=== PATIENT | female | born 1975 | race Caucasian/White ===

== ENCOUNTER 2016-06-09 16:09 | Emergency (ER) | payer OTHER ==
[2016-06-09] MEDS ORDERED: NS 0.9% 1000 ML* 2,000 ML IV ONE (17:35)
[2016-06-09 18:05] LABS: Hematocrit 40 % (35-47); Hemoglobin 12.9 g/dl (12.0-16.0); Mean Corpuscular HGB Conc 32 g/dl (31-36); Mean Corpuscular Hemoglobin 28 pg (27-31); Mean Corpuscular Volume 85 fL (80-97); Mean Platelet Volume 12 um3 (7.4-10.4); Red Blood Count 4.71 10^6/ul (4.0-5.4); Red Cell Distribution Width 13 % (10.5-15); White Blood Count 6.8 10^3/ul (3.5-10.8)
[2016-06-09 18:22] LABS: ALT 81 U/L (7-52); AST 39 U/L (13-39); Albumin 3.9 g/dL (3.2-5.2); Alkaline Phosphatase 79 U/L (34-104); Anion Gap 7 mmol/L (2-11); BUN/Creatinine Ratio 12.9 (8-20); Blood Urea Nitrogen 11 mg/dL (6-24); CO2 Carbon Dioxide 25 mmol/L (22-32); Calcium 9.1 mg/dL (8.6-10.3); Chloride 107 mmol/L (101-111); Creatine Kinase 44 U/L (10-223); EGFR African American 96.3 (>60); EGFR Non-African American 74.9 (>60); Globulin 3.1 g/dL (2-4); Glucose 95 mg/dL (70-100); Lipase < 10 U/L (11.0-82.0); Magnesium 2.2 mg/dL (1.9-2.7); Potassium 3.1 mmol/L (3.5-5.0); Sodium 139 mmol/L (133-145)
[2016-06-09 18:38] LABS: Urine Bacteria 1+ (Absent); Urine Bilirubin 1+ (Negative); Urine Glucose Negative (Negative); Urine Nitrite Negative (Negative)
--- NOTE | 2016-06-09 18:48 | RAD ---
Indication: Chest pain. Single frontal view of the chest performed at 1803 hours was reviewed. Comparison is made with previous exam dated March 18, 2016. No mediastinal shift is noted. Heart is of normal size and configuration. Lung rao appear clear. IMPRESSION: NO ACTIVE CARDIOPULMONARY DISEASE IS NOTED.
[2016-06-09 18:52] LABS: TSH (Thyroid Stimulating Horm) 0.86 mcIU/mL (0.34-5.60)
[2016-06-09] MEDS ORDERED: Ondansetron INJ* 2 MG/ML VIAL IV ONE (19:37)
[2016-06-09] MEDS ORDERED: Morphine INJ* 4 MG/ML 1 ML CARPUJECT IV ONE (19:37)
[2016-06-09] MEDS ORDERED: Potassium Chlor TAB* 20 MEQ TAB.ER PO ONE (19:43)
[2016-06-09] MEDS ORDERED: Iohexol 350* (CONTRAST) 500 ML MDV IV ONE (19:52)
--- NOTE | 2016-06-09 21:48 | RAD ---
Indication: Cholecystitis. Real-time sonography of the right upper quadrant was performed. The liver measures 17 cm in length. No focal lesions or intrahepatic ductal dilatation is noted. The gallbladder demonstrates multiple echogenic foci with posterior acoustic shadowing consistent with cholelithiasis. No pericholecystic fluid or wall thickening is identified. The common duct measures 4 mm. Right kidney measures 11.8 x 3.7 x 4.6 cm with no hydronephrosis. The proximal aorta and inferior vena cava are unremarkable. IMPRESSION: Cholelithiasis without evidence of biliary duct dilatation.
[2016-06-09] MEDS ORDERED: oxyCODONE/Acetamin 5/325 MG* TAB PO ONE (21:58)
--- NOTE | 2016-06-09 22:16 | RAD ---
Indication: Evaluate for pulmonary embolus, right lower quadrant pain. Contrast: Administered 99.9 ml of OMNIPAQUE 350 mgi/ml. CT of the chest was performed after IV contrast administration. Coronal and sagittal reconstructed images were obtained. The pulmonary arterial tree is well opacified. No filling defects are noted to suggest pulmonary embolus. There is no mediastinal or hilar adenopathy. The heart demonstrates no pericardial effusion. The aorta demonstrates no evidence of aortic dissection or aneurysmal dilatation. The trachea and major bronchi appear patent. Dependent changes with poor inspiration and emphysematous changes of the lung rao are noted. The axilla demonstrates no evidence of abnormal masses CT of the abdomen and pelvis demonstrates liver to be normal in size. No focal lesions or intrahepatic ductal dilatation is noted. Area of typical fatty fatty infiltration is noted in the anterior medial and lateral segment of the left lobe just adjacent to the falciform ligament. No intrahepatic ductal dilatation is noted. The gallbladder demonstrates no calcified gallstones, pericholecystic fluid or wall thickening. The spleen is normal in size. No adrenal lesions are noted. The kidneys demonstrate symmetric nephrograms without focal lesions. The pancreas demonstrates no mass or pancreatic duct dilatation. Common duct is not dilated. No retroperitoneal adenopathy is noted. Aorta and inferior vena cava are otherwise unremarkable. No pelvic adenopathy is noted. No dilated loops of bowel are noted. The colon is filled with stool. The appendix is not visualized. The uterus demonstrates IUD in place. No adnexal masses are noted. No hernias are noted. No free fluid is identified. IMPRESSION: No evidence of pulmonary emboli is noted. Dependent changes of the lung rao with emphysematous changes are noted. The appendix is not visualized. Evaluation is limited due to lack of oral contrast. Typical fatty infiltration in the liver.
[2016-06-09 23:04] VITALS: BP 120/64
--- NOTE | 2016-06-09 23:06 | ED ---
David Ng Claudia, scribed for Pollo Cason on 06/09/16 at 1928 . Complex/Multi-Sys Presentation - HPI Summary HPI Summary: 40 year old female presents to the ED with right sided CP. Pt notes associated Sx of nausea, hematuria, right sided back pain and some RLQ and RUQ abd pain. Pt notes sudden onset of pain today. Pt denies left sided CP, SOB, cough. No alleviating or aggravating factors noted. Pt notes she still has her gallbladder and appendix. - History Of Current Complaint Chief Complaint: EDChestPainROMI Time Seen by Provider: 06/09/16 19:14 Hx Obtained From: Patient Onset/Duration: Sudden Onset, Lasting Hours, Still Present Timing: Constant Character: Sharp Associated Signs And Symptoms: Positive: Chest Pain - right sided, Nausea, Back Pain. Negative: SOB, Cough, Dysuria - Allergies/Home Medications Allergies/Adverse Reactions: Allergies Allergy/AdvReac Type Severity Reaction Status Date / Time Acetaminophen Allergy See Comment Verified 03/18/16 06:22 Sertraline [From Zoloft] Allergy Anxiety Verified 03/18/16 06:22 PMH/Surg Hx/FS Hx/Imm Hx Previously Healthy: Yes Endocrine/Hematology History: Denies: Hx Diabetes Respiratory History: Reports: Other Respiratory Problems/Disorders - bronchitis GI History: Reports: Hx Gastroesophageal Reflux Disease Neurological History: Reports: Other Neuro Impairments/Disorders - Fibromyalgia Psychiatric History: Reports: Hx Post Traumatic Stress Disorder Infectious Disease History: No Infectious Disease History: Denies: Traveled Outside the [place] in Last 30 Days - Family History Known Family History: Positive: Other - basal cell carcinoma, Parkinsons - Social History Occupation: Employed Full-time Lives: With Family Alcohol Use: Rare Hx Substance Use: No Substance Use Type: Reports: None Substance Use Comment - Amount & Last Used: unknown Hx Tobacco Use: No Smoking Status (MU): Never Smoked Tobacco Review of Systems Constitutional: Negative Eyes: Negative ENT: Negative Positive: Chest Pain - right sided Negative: Shortness Of Breath, Cough Positive: Abdominal Pain, Nausea Positive: hematuria Positive: Other - back pain Skin: Negative Neurological: Negative Psychological: Normal All Other Systems Reviewed And Are Negative: Yes Physical Exam Triage Information Reviewed: Yes Vital Signs On Initial Exam: Initial Vitals Pulse BP Pulse Ox 86 134/77 97 06/09/16 16:32 06/09/16 16:32 06/09/16 16:32 Vital Signs Reviewed: Yes Appearance: Positive: Well-Appearing, No Pain Distress Skin: Positive: Warm, Skin Color Reflects Adequate Perfusion, Dry Head/Face: Positive: Normal Head/Face Inspection Eyes: Positive: EOMI, REUBEN ENT: Positive: Normal ENT inspection Neck: Positive: Supple, Nontender Respiratory/Lung Sounds: Positive: Clear to Auscultation, Breath Sounds Present Cardiovascular: Positive: RRR, Pulses are Symmetrical in both Upper and Lower Extremities Abdomen Description: Positive: Soft. Negative: Nontender - tender at RUQ, RLQ Musculoskeletal: Positive: Normal, Strength/ROM Intact Neurological: Positive: Normal, Sensory/Motor Intact, Alert, Oriented to Person Place, Time - Kristopher Coma Scale Coma Scale Total: 15 Diagnostics - Vital Signs Vital Signs Temp Pulse Resp BP Pulse Ox 06/09/16 19:00 79 12 100 06/09/16 18:30 80 9 131/73 99 06/09/16 18:20 94 16 126/76 98 06/09/16 18:00 82 10 100 06/09/16 17:30 82 11 118/68 98 06/09/16 17:00 96 25 98 06/09/16 16:55 98.5 F 88 20 134/77 98 06/09/16 16:32 86 134/77 97 - Laboratory Lab Results: Lab Results 06/09/16 06/09/16 06/09/16 Range/Units 17:55 17:55 17:55 WBC 6.8 (3.5-10.8) 10^3/ul RBC 4.71 (4.0-5.4) 10^6/ul Hgb 12.9 (12.0-16.0) g/dl Hct 40 (35-47) % MCV 85 (80-97) fL MCH 28 (27-31) pg MCHC 32 (31-36) g/dl RDW 13 (10.5-15) % Plt Count 174 (150-450) 10^3/ul MPV 12 H (7.4-10.4) um3 Neut % (Auto) 54.4 (38-83) % Lymph % (Auto) 36.1 (25-47) % [place] % (Auto) 6.4 (1-9) % Eos % (Auto) 2.4 (0-6) % Baso % (Auto) 0.7 (0-2) % Absolute Neuts (auto) 3.7 (1.5-7.7) 10^3/ul Absolute Lymphs (auto) 2.5 (1.0-4.8) 10^3/ul Absolute Monos (auto) 0.4 (0-0.8) 10^3/ul Absolute Eos (auto) 0.2 (0-0.6) 10^3/ul Absolute Basos (auto) 0 (0-0.2) 10^3/ul Absolute Nucleated RBC 0 10^3/ul Nucleated RBC % 0 INR (Anticoag Therapy) 0.90 (0.89-1.11) APTT 26.6 (26.0-36.3) seconds D-Dimer, Quantitative 268 H (Less Than 230) ng/mL Sodium 139 (133-145) mmol/L Potassium 3.1 L (3.5-5.0) mmol/L Chloride 107 (101-111) mmol/L Carbon Dioxide 25 (22-32) mmol/L Anion Gap 7 (2-11) mmol/L BUN 11 (6-24) mg/dL Creatinine 0.85 (0.51-0.95) mg/dL Est GFR ( Amer) 96.3 (>60) Est GFR (Non-Af Amer) 74.9 (>60) BUN/Creatinine Ratio 12.9 (8-20) Glucose 95 (70-100) mg/dL Lactic Acid (0.5-2.0) mmol/L Calcium 9.1 (8.6-10.3) mg/dL Magnesium 2.2 (1.9-2.7) mg/dL Total Bilirubin 0.60 (0.2-1.0) mg/dL AST 39 (13-39) U/L ALT 81 H (7-52) U/L Alkaline Phosphatase 79 (34-104) U/L Total Creatine Kinase 44 (10-223) U/L CK-MB (CK-2) 0.9 (0.6-6.3) ng/mL Troponin I 0.00 (<0.04) ng/mL C-Reactive Protein 24.00 H (< 5.00) mg/L B-Natriuretic Peptide ( - 100) pg/mL Total Protein 7.0 (6.4-8.9) g/dL Albumin 3.9 (3.2-5.2) g/dL Globulin 3.1 (2-4) g/dL Albumin/Globulin Ratio 1.3 (1-3) Lipase < 10 L (11.0-82.0) U/L TSH 0.86 (0.34-5.60) mcIU/mL Beta HCG, Quant < 0.60 mIU/mL Urine Color Urine Appearance Urine pH (5-9) Ur Specific [place] (1.010-1.030) Urine Protein (Negative) Urine Ketones (Negative) Urine Blood (Negative) Urine Nitrate (Negative) Urine Bilirubin (Negative) Urine Urobilinogen (Negative) Ur Leukocyte Esterase (Negative) Urine WBC (Auto) (Absent) Urine RBC (Auto) (Absent) Ur Squamous Epith Cells (Absent) Urine Bacteria (Absent) Urine Glucose (Negative) 06/09/16 06/09/16 06/09/16 Range/Units 17:55 17:55 18:20 WBC (3.5-10.8) 10^3/ul RBC (4.0-5.4) 10^6/ul Hgb (12.0-16.0) g/dl Hct (35-47) % MCV (80-97) fL MCH (27-31) pg MCHC (31-36) g/dl RDW (10.5-15) % Plt Count (150-450) 10^3/ul MPV (7.4-10.4) um3 Neut % (Auto) (38-83) % Lymph % (Auto) (25-47) % [place] % (Auto) (1-9) % Eos % (Auto) (0-6) % Baso % (Auto) (0-2) % Absolute Neuts (auto) (1.5-7.7) 10^3/ul Absolute Lymphs (auto) (1.0-4.8) 10^3/ul Absolute Monos (auto) (0-0.8) 10^3/ul Absolute Eos (auto) (0-0.6) 10^3/ul Absolute Basos (auto) (0-0.2) 10^3/ul Absolute Nucleated RBC 10^3/ul Nucleated RBC % INR (Anticoag Therapy) (0.89-1.11) APTT (26.0-36.3) seconds D-Dimer, Quantitative (Less Than 230) ng/mL Sodium (133-145) mmol/L Potassium (3.5-5.0) mmol/L Chloride (101-111) mmol/L Carbon Dioxide (22-32) mmol/L Anion Gap (2-11) mmol/L BUN (6-24) mg/dL Creatinine (0.51-0.95) mg/dL Est GFR ( Amer) (>60) Est GFR (Non-Af Amer) (>60) BUN/Creatinine Ratio (8-20) Glucose (70-100) mg/dL Lactic Acid 1.0 (0.5-2.0) mmol/L Calcium (8.6-10.3) mg/dL Magnesium (1.9-2.7) mg/dL Total Bilirubin (0.2-1.0) mg/dL AST (13-39) U/L ALT (7-52) U/L Alkaline Phosphatase (34-104) U/L Total Creatine Kinase (10-223) U/L CK-MB (CK-2) (0.6-6.3) ng/mL Troponin I (<0.04) ng/mL C-Reactive Protein (< 5.00) mg/L B-Natriuretic Peptide 20 ( - 100) pg/mL Total Protein (6.4-8.9) g/dL Albumin (3.2-5.2) g/dL Globulin (2-4) g/dL Albumin/Globulin Ratio (1-3) Lipase (11.0-82.0) U/L TSH (0.34-5.60) mcIU/mL Beta HCG, Quant mIU/mL Urine Color Nadine Urine Appearance Cloudy Urine pH 6.0 (5-9) Ur Specific [place] 1.030 (1.010-1.030) Urine Protein 1+(30 mg/dl) H (Negative) Urine Ketones Trace H (Negative) Urine Blood 2+ H (Negative) Urine Nitrate Negative (Negative) Urine Bilirubin 1+ H (Negative) Urine Urobilinogen Positive H (Negative) Ur Leukocyte Esterase 2+ H (Negative) Urine WBC (Auto) 1+(6-10/hpf) H (Absent) Urine RBC (Auto) 2+(6-10/hpf) H (Absent) Ur Squamous Epith Cells Present H (Absent) Urine Bacteria 1+ H (Absent) Urine Glucose Negative (Negative) Result Diagrams: 06/09/16 17:55 06/09/16 17:55 Lab Statement: Any lab studies that have been ordered have been reviewed, and results considered in the medical decision making process. - Radiology CHEST XRAY Xray Interpretation: No Acute Changes - NO ACTIVE CARDIPULMOANRY DISEASE Radiology Interpretation Completed By: Radiologist - CT ABD/PELVIS CT CT Interpretation: No Acute Changes - NO EVIDENCE OF PULMONARY EMBOLI IS NOTED. DEPENDENT CHANGES OF THE LUNG MANCIA WITH EMPHYSEMATOUS CHANGES ARE NOTED. THE APPENDIZ IS NOT VISUALIZED. EVALUATION IS LIMITED DUE TO LACK OF ORAL CONTRAST. TYPICAL FALLY INFILTRATION OF THE LIVER. CT Interpretation Completed By: Radiologist - Ultrasound No standard instances Ultrasound Interpretation: Positive (See Comments) - ABD US: CHOLELITHIASIS WITHOUT EVIDENCE OF BILARY DUCT DIALATION Ultrasound Interpretation Completed By: Radiologist Complex Multi-Symp Course/Dx Assessment/Plan: AFTER, URINE ANALYSIS/BLOOD CHEMSITRY, CXR, CTA ABD PELVIS AND ABD US PT WILL BE D/C HOME WITH FOLLOW-UP WITH SURGERY. - Diagnoses Provider Diagnoses: Gallstones, UTI (urinary tract infection) Discharge - Discharge Plan Condition: Stable Disposition: HOME Patient Education Materials: Cholecystitis (ED), Urinary Tract Infection in Women (ED) Referrals: Georges Anderson MD [Primary Care Provider] - 3 Days The documentation as recorded by the David dorsey Claudia accurately reflects the service I personally performed and the decisions made by Yoav hernandez Emmanuel.
== END 2016-06-09 23:03 | disposition home or self-care (01) ==
LOC: ED 16:09
DX: K80.80 Other cholelithiasis without obstruction (principal); N39.0 Urinary tract infection, site not specified; R31.9 Hematuria, unspecified; R07.9 Chest pain, unspecified; R11.0 Nausea; M54.9 Dorsalgia, unspecified
CPT/HCPCS: 36415; 71010; 71275; 74177; 76705; 80053; 81003; 81015; 82550; 82553; 83605; 83690; 83735; 83880; 84443; 84484; 84702; 85025; 85379; 85610; 85730; 86140; 87086; 93005; 96374; 96375; 99283; A9270-GY; J2270; J2405; Q9967

== ENCOUNTER → 2016-06-30 11:53 | Day surgery (SDC) | payer OTHER ==
--- NOTE | 2016-06-23 21:34 | HP ---
CC: Dr. Robertson, [facility]; Dr. Anderson PREOPERATIVE HISTORY AND PHYSICAL: DATE OF PREOPERATIVE HISTORY AND PHYSICAL: 06/23/16 DATE OF ADMISSION/SURGERY: This patient is scheduled for same-day surgery by Dr. Robertson on Tuesday , 06/30/16. ATTENDING SURGEON: Dr. John Robertson (dictated by Dez Reynolds NP) CHIEF COMPLAINT: Right upper quadrant abdominal pain. HISTORY OF PRESENT ILLNESS: The patient is a 40-year-old female, recently evaluated by Dr. Robertson fo r gallbladder disease. She had the acute onset of right upper quadrant pain in May 2016 and re ported to the [facility] Emergency Room. She described the pain as severe and radiating into he r back and shoulder. She denied any previous similar symptoms. She has intermittent nausea at basel ine; she did not vomit with the episode of right upper quadrant abdominal pain. She denies any mike ge in the color of urine or stool and denies any fever or chills. She underwent CAT scan of the abdo men as well as ultrasound of the gallbladder and the reports are consistent with gallstones without any secondary signs of cholecystitis. The patient continues to have mild discomfort in the right up per quadrant. Dr. Robertson examined the patient and reviewed the findings with her and has recommended laparoscopic cholecystectomy as a same day surgery procedure and described the nature of the surgic al procedure, the relevant risks and benefits, and today I have reviewed the typical same day hospit alization as well as the expected postoperative care and recovery. The patient has had a chance to ask questions and stated that she understands the information and is satisfied with the answers give n to her questions. She will sign surgical consent on the day of surgery. PAST MEDICAL HISTORY: Significant for fibromyalgia, gastroesophageal reflux disease, uterine fibroi ds, anxiety. PAST SURGICAL HISTORY: Adenoidectomy; excision of lesion under the right eye. OB HISTORY: 6, miscarriage 6. She is up-to-date with breast exam, pelvic and Pap smear. S he is followed by Dr. Eduardo and has a history of uterine fibroids associated with heavy menstrual fl ow and was started on oral contraceptives. Last menstrual period started 05/29/16. MEDICATIONS: 1. Lyrica 150 mg p.o. b.i.d. 2. Klonopin 2 mg p.o. daily every morning. 3. Protonix 40 mg 2 tablets daily. 4. Wellbutrin XL 300 mg p.o. daily. 5. Junel oral contraceptive daily. 6. Zantac 300 mg p.o. daily at bedtime. 7. Oxycodone 5 mg 1 to 2 tablets every 4 to 6 hours p.r.n. pain related to the symptomatic cholelit hiasis, but she has taken very minimal oxycodone. 8. Multivitamin tablet daily. 9. Voltaren XR 75 mg 1 tablet p.r.n. 10. Robaxin 500 mg 1 tablet 3 times a day p.r.n. and she states that she rarely takes that. ALLERGIES: ACETAMINOPHEN causes severe nausea and dizziness. SERTRALINE caused side effects of con fusion and anxiety. SOCIAL HISTORY: She is single and unemployed. She has never been a smoker. She rarely drinks alco hol and denies the use of other substances. FAMILY HISTORY: Mother has a history of multiple sclerosis and father has a history of Parkinson's. No known bleeding tendencies or clotting disorder, or anesthesia complications in the family. REVIEW OF SYSTEMS: She has a history of migraine headache; she suffers with anxiety and depression and has never had any psychiatric admissions. She denies any cardiac conditions or complaints and h as never had a deep vein thrombosis or pulmonary embolism. She has intermittent nausea. No vomitin g. She does have a history of GERD and she is currently on Protonix and Zantac. She denies any stoney nge in bowel habits or light colored stool; she denies any dysuria or dark colored urine. She denie s any jaundice. She denies any bleeding or clotting disorders and has never received a blood transf usion. She has fibromyalgia. PHYSICAL EXAMINATION GENERAL SURVEY: The patient is a 40-year-old obese female in no acute distress. VITAL SIGNS: Height 65 inches, weight 235 pounds, body mass index 39, blood pressure 116/74, pulse 80 and regular, respiratory rate 16, temperature 98.5 tympanic. HEENT: Anicteric sclerae, benign throughout. NECK: Supple. No cervical lymphadenopathy. LUNGS: Breath sounds bilaterally clear and equal. HEART: Regular rate and rhythm. No murmurs or rubs appreciated. ABDOMEN: Obese. Active bowel sounds. Soft. Minimal epigastric tenderness with deep palpation. Ne gative Uribe sign. No obvious masses, organomegaly, or evidence of umbilical or ventral hernias. BACK: No CVA tenderness. PELVIC: Done within the past year not repeated. RECTAL: Done within the past year not repeated. EXTREMITIES: Warm without edema or skin ulceration. SKIN: Warm, dry, anicteric, intact. NEUROLOGIC: Alert and oriented x3, steady gait. IMPRESSION: Symptomatic cholelithiasis. PLAN: Same-day surgery admission to Dr. Robertson's service on 06/30/16, for laparoscopic ch olecystectomy. DEZ REYNOLDS, REGULATORY ADMINISTRATOR [id number]/[facility] #: [id number]
[~2016-06-30 11:53] MED LIST: Bacitracin OINTMENT* 1 TUBE ONE; Buffered Lidocaine 1% SYRIN* 3 ML/SYR SYRINGE INTRADERM ONE; Bupivacaine 0.25% EPI 200,000* 30 ML SDV ONE; Dexamethasone IV* 4 MG/ML 1 ML (4 MG) ONE; DiMENhydriNATE IV* 50 MG/ML VIAL IV PUSH PRN; DiMENhydriNATE IV* 50 MG/ML VIAL ONE; Famotidine IV* 10 MG/ML 2 ML (20 mg) ONE; HYDROmorphone* 1 MG/ML 1 ML SYR ONE; Ketorolac INJ* 30 MG/ML 1 ML VIAL ONE; Levalbuterol 0.63MG/3ML NEB INH PRN; Lidocaine 2% PF* 5 ML VIAL ONE; Midazolam* 1 MG/ML 2 ML VIAL (2 MG) ONE; Neostigmine Methylsulfate* 2 MG/2 ML SYRINGE ONE; Ondansetron INJ* 2 MG/ML VIAL IV PRN; Ondansetron INJ* 2 MG/ML VIAL ONE; PROCHLORPERAZINE INJ 5 MG/ML 2 ML VIAL IV PRN; Propofol* 10 MG/ML 20 ML BTL IV PUSH ONE; Rocuronium* 10 MG/ML VIAL ONE; Succinylcholine* 20 MG/ML 10 ML VIAL ONE; ceFAZolin 2 GM PREMIX(*) 2 GM/50 ML BAG IVPB ONE; fentaNYL* 50 MCG/ML 2 ML VIAL (100 MCG VIAL) IV PRN; fentaNYL* 50 MCG/ML 2 ML VIAL (100 MCG VIAL) ONE; oxyCODONE TAB* 5 MG TAB PO PRN
[2016-06-30 12:31] LABS: UR Preg Internal Control QC Line Present
--- NOTE | 2016-06-30 15:39 | SURGPN ---
Brief Operative Note - Surgery Procedures: Pre-OP Diagnoses: chronic cholecystitis Post-op Diagnosis: same Procedure: Laparoscopic cholecystectomy Surgeon: Marcelo Asst: Leonor Anethesia: CIRA Walker EBL: minimal IVF: crystalloid Specimen: gallbladder Drains: none
[2016-06-30 18:17] VITALS: BP 102/80
--- NOTE | 2016-07-01 07:08 | OP ---
DATE OF OPERATION: 06/30/16 [facility], [place] DATE OF : 79 SURGEON: John Robertson MD [employer] MANAGER: BRAEDEN Rodriguez ANESTHESIOLOGIST: Dr. Walker. ANESTHESIA: General anesthesia. PRE-OP DIAGNOSIS: Chronic cholecystitis. POST-OP DIAGNOSIS: Chronic cholecystitis. OPERATIVE PROCEDURE: Laparoscopic cholecystectomy. ESTIMATED BLOOD LOSS: Minimal blood loss. FLUIDS REPLACED: Minimal crystalloid fluid given. SPECIMEN: Gallbladder. COUNTS: Lap pad count, instrument count correct at the end of the procedure. DRAINS: None. DESCRIPTION OF PROCEDURE: The patient was identified in the preoperative area, brought to the operating room, placed on the operating table in the supine position. Preoperative antibiotics were given. Sequential devices were placed on bilateral lower extremities. General anesthesia was induced. The patient's abdomen was then prepped and draped in standard surgical fashion. Time-out was performed. Folds of the umbilicus were elevated anteriorly and a Veress needle was attempted to be placed in the abdominal cavity. This proved difficult and we abandoned this and made a periumbilical incision just in the right upper quadrant. This was deepened down to the anterior fascia which was elevated and the Veress needle was then inserted into the abdominal cavity which was allowed to insufflate to a pressure of 15 mmHg. The patient tolerated the insufflation well. Veress needle was removed and a 5-mm trocar was inserted. Laparoscope was inserted through this and there was no evidence of injury from the trocar insertion or from the Veress needle. I reviewed the upper abdomen. It showed the gallbladder with some attachments, but otherwise not acutely inflamed. Additional trocars were then placed in the following position: 12 mm in the subxiphoid area and two 5 mm along the right costal margin. The table was repositioned. The fundus of the gallbladder was grasped and elevated anteriorly. The attachments to the duodenum were then taken down with both sharp and blunt dissection until we could better visualize the full body of the gallbladder. The gallbladder was retracted above the liver. Infundibulum was then grabbed and retracted towards the right lower quadrant, this exposed the Calot's triangle. Next, the peritoneum of the medial aspect of the gallbladder was taken with electrocautery. The lateral aspect was similarly taken. The cystic artery was isolated. The cystic duct was isolated. There were some chronic inflammatory changes around the area of this duct, we were able to clear this off. The cystic artery was doubly clipped and ligated. This allowed us to get better attention on the cystic duct which was cleared off additional attachments and then doubly clipped and ligated. The gallbladder was removed from the liver bed , placed in an endoscopic retrieval bag and brought out through the subxiphoid port. Electrocautery was used on liver bed at the liver edge to gain hemostasis. Table was repositioned back to neutral. Cystic duct stump and cystic artery stump were identified and showed no evidence of bile or bleeding. With the gallbladder out, the abdomen was allowed to collapse. Trocars removed under direct vision and all 4 skin incisions were reapproximated with 4- 0 Monocryl subcuticular sutures. Sterile dressing was applied. The patient tolerated the procedure well. CC: Dr. Georges Anderson; [facility]* [id number]/[facility] #: [id number] MTDD
== END | disposition home or self-care (01) ==
LOC: OR 11:53
PROVIDERS: ATTEND Surgery
DX: K80.10 Calculus of gallbladder with chronic cholecystitis without obstruction (principal); J40 Bronchitis, not specified as acute or chronic
CPT/HCPCS: 81025; 88304; A9270-GY; J0330; J0690; J1100; J1170; J1240; J1885; J2250; J2405; J2704; J3010

== ENCOUNTER 2016-07-09 22:35 | Emergency (ER) | payer OTHER ==
[2016-07-10 00:59] LABS: Hematocrit 37 % (35-47); Hemoglobin 12.1 g/dl (12.0-16.0); Mean Corpuscular HGB Conc 33 g/dl (31-36); Mean Corpuscular Hemoglobin 28 pg (27-31); Mean Corpuscular Volume 85 fL (80-97); Mean Platelet Volume 11 um3 (7.4-10.4); Red Blood Count 4.31 10^6/ul (4.0-5.4); Red Cell Distribution Width 13 % (10.5-15); White Blood Count 6.3 10^3/ul (3.5-10.8)
[2016-07-10 01:07] LABS: Urine Bacteria 1+ (Absent); Urine Bilirubin Negative (Negative); Urine Glucose Negative (Negative); Urine Nitrite Negative (Negative)
[2016-07-10 01:10] LABS: ALT 48 U/L (7-52); AST 23 U/L (13-39); Albumin 3.7 g/dL (3.2-5.2); Alkaline Phosphatase 93 U/L (34-104); Anion Gap 9 mmol/L (2-11); BUN/Creatinine Ratio 9.4 (8-20); Blood Urea Nitrogen 8 mg/dL (6-24); C Reactive Protein 13.84 mg/L (< 5.00); CO2 Carbon Dioxide 23 mmol/L (22-32); Calcium 8.9 mg/dL (8.6-10.3); Chloride 105 mmol/L (101-111); EGFR African American 96.3 (>60); EGFR Non-African American 74.9 (>60); Globulin 3.2 g/dL (2-4); Glucose 83 mg/dL (70-100); Lipase < 10 U/L (11.0-82.0); Potassium 3.2 mmol/L (3.5-5.0); Sodium 137 mmol/L (133-145); Total Protein 6.9 g/dL (6.4-8.9)
[2016-07-10] MEDS ORDERED: Potassium Chloride LIQUID* 20 MEQ PACKET PO ONE (01:30)
--- NOTE | 2016-07-10 01:32 | ED ---
Justin Ng Billy, scribed for Pawan Gonzalez MD on 07/10/16 at 0010 . Abdominal Pain/Female - HPI Summary HPI Summary: Patient is a 40 y/o female coming to [facility] for evaluation of intermittent RUQ pain today. Severity 7/10. Pain wraps around her ribcage. Nothing makes her pain better or worse. She had a cholecystectomy on 06/30/16. She had a post-op visit today with the surgeon, and she states that she was told the pain was " her liver healing." - History of Current Complaint Chief Complaint: EDAbdPain Stated Complaint: RT RIBS PAIN Time Seen by Provider: 07/10/16 00:05 Hx Obtained From: Patient Onset/Duration: Gradual Onset, Lasting Days, Still Present Timing: Intermittent Episode Lasting Severity Initially: Moderate Severity Currently: Moderate Pain Intensity: 7 Pain Scale Used: 0-10 Numeric Location: Discrete At: RUQ Radiates: Yes Radiates to: Chest - ribcage Aggravating Factor(s): Nothing Alleviating Factor(s): Nothing Associated Signs and Symptoms: Positive: Negative Allergies/Adverse Reactions: Allergies Allergy/AdvReac Type Severity Reaction Status Date / Time Acetaminophen Allergy See Comment Verified 07/09/16 22:45 Sertraline [From Zoloft] Allergy Anxiety Verified 07/09/16 22:45 PMH/Surg Hx/FS Hx/Imm Hx Endocrine/Hematology History: Denies: Hx Diabetes Respiratory History: Reports: Other Respiratory Problems/Disorders - bronchitis 4 months ago GI History: Reports: Hx Gastroesophageal Reflux Disease Sensory History: Reports: Hx Contacts or Glasses - wears glasses Denies: Hx Hearing Aid Opthamlomology History: Reports: Hx Contacts or Glasses - wears glasses Neurological History: Reports: Hx Migraine - uses medication, Other Neuro Impairments/Disorders - Fibromyalgia, PTSD diagnosis 2012 Psychiatric History: Reports: Hx Anxiety - uses medication, Hx Depression - uses medication, Hx Post Traumatic Stress Disorder - Surgical History Surgery Procedure, Year, and Place: adnoidectomy 1992 Hx Anesthesia Reactions: No Infectious Disease History: No Infectious Disease History: Denies: Traveled Outside the [place] in Last 30 Days - Family History Known Family History: Positive: Other - basal cell carcinoma, Parkinsons - Social History Alcohol Use: Rare Hx Substance Use: No Substance Use Type: Reports: None Substance Use Comment - Amount & Last Used: unknown Hx Tobacco Use: No Smoking Status (MU): Never Smoked Tobacco Review of Systems Negative: Fever Positive: Abdominal Pain All Other Systems Reviewed And Are Negative: Yes Physical Exam Triage Information Reviewed: Yes Vital Signs On Initial Exam: Initial Vitals Temp Pulse Resp BP Pulse Ox 97.1 F 90 18 141/78 100 07/09/16 22:40 07/09/16 22:40 07/09/16 22:40 07/09/16 22:40 07/09/16 22:40 Vital Signs Reviewed: Yes Appearance: Positive: Well-Appearing, No Pain Distress Skin: Positive: Warm Head/Face: Positive: Normal Head/Face Inspection Eyes: Positive: REUBEN ENT: Positive: Hearing grossly normal Neck: Positive: Supple, Nontender Respiratory/Lung Sounds: Positive: Breath Sounds Present Cardiovascular: Positive: RRR Abdomen Description: Positive: Nontender, Soft Bowel Sounds: Positive: Present Musculoskeletal: Positive: Strength/ROM Intact Neurological: Positive: Sensory/Motor Intact, Alert, Oriented to Person Place, Time Psychiatric: Positive: Affect/Mood Appropriate Diagnostics - Vital Signs Vital Signs Temp Pulse Resp BP Pulse Ox 07/09/16 22:40 97.1 F 90 18 141/78 100 - Laboratory Lab Results: Lab Results 07/10/16 07/10/16 07/10/16 Range/Units 00:30 00:30 00:30 WBC 6.3 (3.5-10.8) 10^3/ul RBC 4.31 (4.0-5.4) 10^6/ul Hgb 12.1 (12.0-16.0) g/dl Hct 37 (35-47) % MCV 85 (80-97) fL MCH 28 (27-31) pg MCHC 33 (31-36) g/dl RDW 13 (10.5-15) % Plt Count 194 (150-450) 10^3/ul MPV 11 H (7.4-10.4) um3 Neut % (Auto) 47.2 (38-83) % Lymph % (Auto) 43.5 (25-47) % [place] % (Auto) 7.7 (1-9) % Eos % (Auto) 1.0 (0-6) % Baso % (Auto) 0.6 (0-2) % Absolute Neuts (auto) 3.0 (1.5-7.7) 10^3/ul Absolute Lymphs (auto) 2.7 (1.0-4.8) 10^3/ul Absolute Monos (auto) 0.5 (0-0.8) 10^3/ul Absolute Eos (auto) 0.1 (0-0.6) 10^3/ul Absolute Basos (auto) 0 (0-0.2) 10^3/ul Absolute Nucleated RBC 0.01 10^3/ul Nucleated RBC % 0.2 Sodium 137 (133-145) mmol/L Potassium 3.2 L (3.5-5.0) mmol/L Chloride 105 (101-111) mmol/L Carbon Dioxide 23 (22-32) mmol/L Anion Gap 9 (2-11) mmol/L BUN 8 (6-24) mg/dL Creatinine 0.85 (0.51-0.95) mg/dL Est GFR ( Amer) 96.3 (>60) Est GFR (Non-Af Amer) 74.9 (>60) BUN/Creatinine Ratio 9.4 (8-20) Glucose 83 (70-100) mg/dL Lactic Acid (0.5-2.0) mmol/L Calcium 8.9 (8.6-10.3) mg/dL Total Bilirubin 0.70 (0.2-1.0) mg/dL AST 23 (13-39) U/L ALT 48 (7-52) U/L Alkaline Phosphatase 93 (34-104) U/L C-Reactive Protein 13.84 H (< 5.00) mg/L Total Protein 6.9 (6.4-8.9) g/dL Albumin 3.7 (3.2-5.2) g/dL Globulin 3.2 (2-4) g/dL Albumin/Globulin Ratio 1.2 (1-3) Lipase < 10 L (11.0-82.0) U/L Urine Color Yellow Urine Appearance Clear Urine pH 6.0 (5-9) Ur Specific [place] 1.013 (1.010-1.030) Urine Protein Negative (Negative) Urine Ketones 1+ H (Negative) Urine Blood 1+ H (Negative) Urine Nitrate Negative (Negative) Urine Bilirubin Negative (Negative) Urine Urobilinogen Negative (Negative) Ur Leukocyte Esterase Trace H (Negative) Urine WBC (Auto) Trace(0-5/hpf) (Absent) Urine RBC (Auto) 1+(3-5/hpf) H (Absent) Ur Squamous Epith Cells Present H (Absent) Urine Bacteria 1+ H (Absent) Urine Glucose Negative (Negative) 07/10/16 Range/Units 00:30 WBC (3.5-10.8) 10^3/ul RBC (4.0-5.4) 10^6/ul Hgb (12.0-16.0) g/dl Hct (35-47) % MCV (80-97) fL MCH (27-31) pg MCHC (31-36) g/dl RDW (10.5-15) % Plt Count (150-450) 10^3/ul MPV (7.4-10.4) um3 Neut % (Auto) (38-83) % Lymph % (Auto) (25-47) % [place] % (Auto) (1-9) % Eos % (Auto) (0-6) % Baso % (Auto) (0-2) % Absolute Neuts (auto) (1.5-7.7) 10^3/ul Absolute Lymphs (auto) (1.0-4.8) 10^3/ul Absolute Monos (auto) (0-0.8) 10^3/ul Absolute Eos (auto) (0-0.6) 10^3/ul Absolute Basos (auto) (0-0.2) 10^3/ul Absolute Nucleated RBC 10^3/ul Nucleated RBC % Sodium (133-145) mmol/L Potassium (3.5-5.0) mmol/L Chloride (101-111) mmol/L Carbon Dioxide (22-32) mmol/L Anion Gap (2-11) mmol/L BUN (6-24) mg/dL Creatinine (0.51-0.95) mg/dL Est GFR ( Amer) (>60) Est GFR (Non-Af Amer) (>60) BUN/Creatinine Ratio (8-20) Glucose (70-100) mg/dL Lactic Acid 1.3 (0.5-2.0) mmol/L Calcium (8.6-10.3) mg/dL Total Bilirubin (0.2-1.0) mg/dL AST (13-39) U/L ALT (7-52) U/L Alkaline Phosphatase (34-104) U/L C-Reactive Protein (< 5.00) mg/L Total Protein (6.4-8.9) g/dL Albumin (3.2-5.2) g/dL Globulin (2-4) g/dL Albumin/Globulin Ratio (1-3) Lipase (11.0-82.0) U/L Urine Color Urine Appearance Urine pH (5-9) Ur Specific [place] (1.010-1.030) Urine Protein (Negative) Urine Ketones (Negative) Urine Blood (Negative) Urine Nitrate (Negative) Urine Bilirubin (Negative) Urine Urobilinogen (Negative) Ur Leukocyte Esterase (Negative) Urine WBC (Auto) (Absent) Urine RBC (Auto) (Absent) Ur Squamous Epith Cells (Absent) Urine Bacteria (Absent) Urine Glucose (Negative) Result Diagrams: 07/10/16 00:30 07/10/16 00:30 Lab Statement: Any lab studies that have been ordered have been reviewed, and results considered in the medical decision making process. Re-Evaluation - Re-Evaluation First Eval Change: Improved Abdominal Pain Fem Course/Dx - Diagnoses Provider Diagnoses: Abdominal pain Discharge - Discharge Plan Condition: Stable Disposition: HOME Patient Education Materials: Abdominal Pain (ED) Referrals: Pawan Hernandez MD [Medical Doctor] - The documentation as recorded by the Justin dorsey Billy accurately reflects the service I personally performed and the decisions made by , Pawan Gonzalez MD.
[2016-07-10 01:47] VITALS: BP 135/84
--- NOTE | 2016-07-10 08:17 | RAD ---
INDICATION: Chest pain COMPARISON: Most recent chest x-ray dated June 09, 2016 TECHNIQUE: PA and lateral views of the chest were obtained. FINDINGS: The heart and mediastinum are normal in size and contour. The lungs are grossly clear. There is no evidence of large pleural effusion. Visualized bones are normal for the patient's age. There is no radiographic evidence of free air beneath the diaphragm IMPRESSION: No radiographic evidence of acute cardiopulmonary disease.
== END 2016-07-10 01:46 | disposition home or self-care (01) ==
LOC: ED 22:35
DX: R10.11 Right upper quadrant pain (principal)
CPT/HCPCS: 36415; 71020; 80053; 81003; 81015; 83605; 83690; 85025; 86140; 87086; 99282; A9270-GY

== ENCOUNTER 2017-11-12 08:18 | Emergency (ER) | payer OTHER ==
[2017-11-12] MEDS ORDERED: Morphine INJ** 4 MG/ML 1 ML CARPUJECT IV ONE (08:33)
[2017-11-12] MEDS ORDERED: Ondansetron INJ* 2 MG/ML VIAL IV ONE (08:34)
[2017-11-12] MEDS ORDERED: Ketorolac INJ* 30 MG/ML 1 ML VIAL IV PUSH ONE (08:36)
--- NOTE | 2017-11-12 08:37 | ED ---
GI/ HPI - HPI Summary HPI Summary: 42 female presents with left lower quadrant pain for the past day. She states that pain comes and go. She has some left flank pain. She admits to constipation. She admits to nausea denies vomiting. She admits to urgency. Denies any dysuria. no history of hematuria. She is treated for UTI this month but has been at least a week without antibiotics. She denies any fevers. No abnormal vaginal discharge. She has history of fibroids. She has history of gallbladder removal. No history of diverticulitis or ovarian cysts. She has history of fibromyalgia and took her normal pain medication but did not work. She has never had this pain before. - History of Current Complaint Chief Complaint: EDAbdPain Time Seen by Provider: 11/12/17 08:19 Stated Complaint: ABD PAIN Pain Intensity: 5 - Allergy/Home Medications Allergies/Adverse Reactions: Allergies Allergy/AdvReac Type Severity Reaction Status Date / Time MS Acetaminophen Allergy See Comment Verified 07/09/16 22:45 [Acetaminophen] MS Sertraline [From Zoloft] Allergy Anxiety Verified 07/09/16 22:45 PMH/Surg Hx/FS Hx/Imm Hx Endocrine/Hematology History: Denies: Hx Diabetes Respiratory History: Reports: Other Respiratory Problems/Disorders - bronchitis 4 months ago GI History: Reports: Hx Gastroesophageal Reflux Disease Musculoskeletal History: Reports: Hx Fibromyalgia Sensory History: Reports: Hx Contacts or Glasses - wears glasses Denies: Hx Hearing Aid Opthamlomology History: Reports: Hx Contacts or Glasses - wears glasses Neurological History: Reports: Hx Migraine - uses medication, Other Neuro Impairments/Disorders - Fibromyalgia, PTSD diagnosis 2011 Psychiatric History: Reports: Hx Anxiety - uses medication, Hx Depression - uses medication, Hx Post Traumatic Stress Disorder - Surgical History Surgery Procedure, Year, and Place: adnoidectomy 1992 Hx Anesthesia Reactions: No Infectious Disease History: No Infectious Disease History: Denies: Traveled Outside the [place] in Last 30 Days - Family History Known Family History: Positive: Other - basal cell carcinoma, Parkinsons Family History: R & n/C - Social History Alcohol Use: Rare Hx Substance Use: No Substance Use Type: Reports: None Substance Use Comment - Amount & Last Used: unknown Hx Tobacco Use: No Smoking Status (MU): Never Smoked Tobacco Review of Systems Negative: Fever Negative: Chest Pain Negative: Shortness Of Breath Positive: Abdominal Pain, Nausea. Negative: Vomiting, Diarrhea Positive: flank pain All Other Systems Reviewed And Are Negative: Yes Physical Exam Triage Information Reviewed: Yes Vital Signs On Initial Exam: Initial Vitals Temp Pulse Resp BP Pulse Ox 99.5 F 102 22 144/95 98 11/12/17 08:24 11/12/17 08:24 11/12/17 08:24 11/12/17 08:24 11/12/17 08:24 Vital Signs Reviewed: Yes Appearance: Positive: Pain Distress Skin: Positive: Warm, Dry Head/Face: Positive: Normal Head/Face Inspection Eyes: Positive: Normal, Conjunctiva Clear ENT: Positive: Pharynx normal Respiratory/Lung Sounds: Positive: Clear to Auscultation, Breath Sounds Present Cardiovascular: Positive: Normal, RRR Abdomen Description: Positive: Soft, CVA Tenderness (L), Other: - tenderness LLQ Bowel Sounds: Positive: Present Musculoskeletal: Positive: Normal Neurological: Positive: Normal Psychiatric: Positive: Normal Diagnostics - Vital Signs Vital Signs Temp Pulse Resp BP Pulse Ox 11/12/17 08:24 99.5 F 96 17 144/95 97 - Laboratory Result Diagrams: 11/12/17 08:49 11/12/17 08:49 Lab Statement: Any lab studies that have been ordered have been reviewed, and results considered in the medical decision making process. - CT abd CT Interpretation: No Acute Changes CT Interpretation Completed By: Radiologist - Ultrasound No standard instances Ultrasound Interpretation: No Acute Changes - IMPRESSION: SMALL UTERINE FIBROIDS. IUD IN EXPECTED POSITION. NORMAL OVARIES. Ultrasound Interpretation Completed By: Radiologist Re-Evaluation - Re-Evaluation First Eval Re-Evaluation Time: 11:08 Change: Improved - pain improved after medication GIGU Course/Dx - Course Course Of Treatment: 42 female presents with left lower quadrant pain for the past day. She states that pain comes and go. She has some left flank pain. She admits to constipation. She admits to nausea denies vomiting. She admits to urgency. Denies any dysuria. no history of hematuria. She is treated for UTI this month but has been at least a week without antibiotics. She denies any fevers. No abnormal vaginal discharge. She has history of fibroids. She has history of gallbladder removal. No history of diverticulitis or ovarian cysts. She has history of fibromyalgia and took her normal pain medication but did not work. She has never had this pain before. on exam has tenderness left flank and LLQ. labs wbc normal. crp elevated. ct abd normal. transvaginal u/s fiboids. will treat as uti with urgency and leuk estarase. will place on bactrim. patient understand and agrees with plan. - Diagnoses Differential Diagnoses - Female: Diverticulitis, Ovarian Cyst, Pyelonephritis, Urinary Tract Infection Provider Diagnoses: UTI (urinary tract infection), Abdominal pain, Fibroid, uterine Discharge - Sign-Out/Discharge Documenting (check all that apply): Patient Departure - Discharge Plan Condition: Good Disposition: HOME Prescriptions: Sulfamethox/Trimethoprim DS* [Bactrim DS 800/160 TAB*] 1 tab PO BID #9 tab Patient Education Materials: Urinary Tract Infection in Women (ED) Referrals: Georges Anderson MD [Primary Care Provider] - Additional Instructions: Take Bactrim twice a day for 5 days, first dose given in ED Follow up with primary in 7 days Return to ED if develop fever, vomiting or any new or worsening symptoms - Billing Disposition and Condition Condition: GOOD Disposition: Home
[2017-11-12] MEDS ORDERED: Morphine VIAL* 10 MG/ML 1 ML VIAL IV ONE (09:00)
[2017-11-12 09:05] LABS: ABS Basophils 0 10^3/ul (0-0.2); ABS Eosinophils 0.1 10^3/ul (0-0.6); ABS Lymphocytes 2.7 10^3/ul (1.0-4.8); ABS Monocytes 0.4 10^3/ul (0-0.8); ABS Neutrophils 3.1 10^3/ul (1.5-7.7); ABS Nucleated RBC 0 10^3/ul; Eosinophil % 1.3 % (0-6); Hematocrit 39 % (35-47); Hemoglobin 12.8 g/dl (12.0-16.0); Lymphocyte % 42.3 % (25-47); Mean Corpuscular HGB Conc 33 g/dl (31-36); Mean Corpuscular Hemoglobin 28 pg (27-31); Mean Corpuscular Volume 83 fL (80-97); Nucleated Red Blood Cells % 0; Platelet Count 241 10^3/ul (150-450); Red Blood Count 4.66 10^6/ul (4.00-5.40); Red Cell Distribution Width 14 % (10.5-15); White Blood Count 6.3 10^3/ul (3.5-10.8)
[2017-11-12 09:18] LABS: EGFR Non-African American 65.2 (>60)
--- NOTE | 2017-11-12 09:54 | RAD ---
INDICATION: Left lower quadrant abdominal pain. Left flank pain. Pelvic pain COMPARISON: CTA chest/abdomen/pelvis February 06, 2017; abdominal sonogram February 06, 2017 TECHNIQUE: Noncontrast axial source images were obtained from the hemidiaphragms to the symphysis pubis. This examination was ordered using a renal stone protocol which is performed without oral or intravenous contrast and therefore has inherent limitations when used to evaluate other intra-abdominal or intrapelvic pathology. Consider conventional contrast enhanced imaging if clinically indicated. Lung bases: The lung bases are clear. Liver: The liver is normal in size. Noncontrast imaging shows no evidence of a hepatic mass or ductal dilatation. Gallbladder: Cholecystectomy. Spleen: The spleen is normal in size. The noncontrast CT appearance is normal. Pancreas: Noncontrast imaging shows no pancreatic mass or ductal dilitation. Adrenal glands: No masses are identified. Kidneys/Bladder: There is no evidence of nephrolithiasis or CT evidence of hydronephrosis. Noncontrast imaging shows no evidence of a renal mass. The bladder is unremarkable.. Adenopathy: There is no evidence of intraperitoneal or retroperitoneal adenopathy. Evaluation is limited without oral contrast. Fluid collections: There are no free or localized fluid collections. Vessels: The aorta and iliac vessels are normal in caliber. There are no significant atherosclerotic changes. The IVC appears normal Pelvic organs: The uterus and adnexa appear normal. There is an IUD GI tract: Evaluation of the bowel is limited without oral contrast. The stomach, small bowel, and lower GI tract appear grossly normal. There are no obstructive findings. The appendix is visualized and appears normal. Soft tissues: No soft tissue abnormalities of the extraperitoneal abdomen or pelvis are identified. Osseous structures: There are no acute osseous findings. IMPRESSION: NO ACUTE CT FINDINGS. NO MASS OR INFLAMMATORY CHANGES.
[2017-11-12 10:33] LABS: Urine Appearance Cloudy; Urine Blood Negative (Negative); Urine Color Yellow; Urine Ketones Negative (Negative); Urine Protein Negative (Negative); Urine Red Blood Cell Absent (Absent); Urine Specific Gravity 1.024 (1.010-1.030); Urine Urobilinogen Negative (Negative); Urine White Blood Cell Trace(0-5/hpf) (Absent)
--- NOTE | 2017-11-12 10:46 | RAD ---
INDICATION: Left lower quadrant pain COMPARISON: CT abdomen and pelvis same date TECHNIQUE: Longitudinal and transverse transvaginal scans of the pelvis were obtained. FINDINGS: Uterus: The uterus is normal in size. There is a right fundal fibroid measuring 2.4 x 1.8 x 2.0 cm and the left fundal fibroid measuring 2.8 x 2.4 x 2.5 cm. The uterus measures 8.1 x 4.1 x 5.1 cm. Endometrial thickness: The endometrial thickness is measured at 0.4 cm. There is no IUD in expected position. Free fluid: There is no significant free fluid . Ovaries: The ovaries are normal in size. The right ovary measures 3.0 x 1.8 x 3.6 cm. The left ovary measures 3.3 x 2.1 x 3.0 cm. . Doppler interrogation demonstrates flow to each ovary. Other: None IMPRESSION: SMALL UTERINE FIBROIDS. IUD IN EXPECTED POSITION. NORMAL OVARIES.
[2017-11-12] MEDS ORDERED: Sulfamethox/Trimethoprim DS 800/160* TAB PO ONE (11:01)
[2017-11-12 11:12] VITALS: BP 123/86
--- NOTE | 2017-11-14 06:39 | PN ---
Progress Note - Progress Note Date of Service: 11/14/17 Note: Patient's urine culture grew enterococcus faecalis 10-25,000. Patient was on Bactrim. We will wait for final cultures for sensitivity.
== END 2017-11-12 11:19 | disposition home or self-care (01) ==
LOC: ED 08:18
DX: N39.0 Urinary tract infection, site not specified (principal); B95.2 Enterococcus as the cause of diseases classified elsewhere; R10.32 Left lower quadrant pain; D25.9 Leiomyoma of uterus, unspecified; F41.9 Anxiety disorder, unspecified; F32.9 Major depressive disorder, single episode, unspecified; F43.10 Post-traumatic stress disorder, unspecified; M79.7 Fibromyalgia; K21.9 Gastro-esophageal reflux disease without esophagitis
CPT/HCPCS: 36415; 74176; 76830; 80053; 81003; 81015; 83605; 83690; 84702; 85025; 86140; 87077; 87086; 87186; 96374; 96375; 96376; 99283; A9270-GY; J1885; J2270; J2405

== ENCOUNTER 2019-01-29 22:29 | Emergency (ER) | payer OTHER ==
[2019-01-29] MEDS ORDERED: NS 0.9% 1000 ML** 1,000 ML IV ONE (22:54)
[2019-01-29] MEDS ORDERED: Morphine 4 MG/ML VIAL (1 ml) 4 MG/ML VIAL IV PRN (22:55)
[2019-01-29] MEDS ORDERED: Nitro 2% OINT* (Nitroglycerin) 1 INCH/PAK PAK TOPICAL ONE (22:55)
[2019-01-29] MEDS ORDERED: Aspirin 81 mg CHEW TAB* 81 MG TAB.CHEW PO ONE (22:55)
[2019-01-29] MEDS ORDERED: Morphine 4 MG/ML VIAL (1 ml) 4 MG/ML VIAL IV ONE (22:55)
--- NOTE | 2019-01-29 22:55 | ED ---
HPI Chest Pain - HPI Summary HPI Summary: 43 year old F presenting to [facility] complains of intermittent episodes of left- sided chest pain radiating into left shoulder blade since December 2018, worse since this past month January 2019. In the last few days, patient states that she has had increasing number of episodes, usually 4-5 episodes each day, each episode lasting 3-5 minutes. Patient is currently having an episode of chest pain which started 22:30 today 01/29/19 while she was sitting and watching a movie. The patient rates the pain 8/10 in severity. Symptoms aggravated by recent life stress in the last few weeks and deep breathing. Symptoms alleviated by nothing. - History of Current Complaint Chief Complaint: EDChestPainROMI Time Seen by Provider: 01/29/19 22:49 Hx Obtained From: Patient Onset/Duration: Started Weeks Ago - December 2018, Still Present, Worse Since - this past month January 2019 Timing: Intermittent, Lasting Minutes - 3-5 Current Severity: Severe Pain Intensity: 8 Pain Scale Used: 0-10 Numeric Chest Pain Radiates: Yes Chest Pain Radiates To:: Other - left shoulder blade Aggravating Factor(s): Other: - recent life stress, deep breathing Alleviating Factor(s): Nothing - Allergy/Home Medications Allergies/Adverse Reactions: Allergies Allergy/AdvReac Type Severity Reaction Status Date / Time acetaminophen Allergy Intermediate Nausea Verified 01/29/19 23:09 sertraline [From Zoloft] Allergy Intermediate Palpitation Verified 01/29/19 23: 09 s trazodone Allergy Intermediate Dizziness Verified 01/29/19 23:09 Home Medications: Home Medications Fexofenadine (NF) [Carly 180 (NF)] 180 mg PO DAILY 01/29/19 [History Confirmed 01/29/19] Pregabalin CAP(*) [Lyrica CAP(*)] 100 mg PO BID 01/29/19 [History Confirmed ] PMH/Surg Hx/FS Hx/Imm Hx Endocrine/Hematology History: Denies: Hx Diabetes Respiratory History: Reports: Other Respiratory Problems/Disorders - bronchitis 4 months ago GI History: Reports: Hx Gastroesophageal Reflux Disease Musculoskeletal History: Reports: Hx Fibromyalgia Sensory History: Reports: Hx Contacts or Glasses - wears glasses Denies: Hx Hearing Aid Opthamlomology History: Reports: Hx Contacts or Glasses - wears glasses Neurological History: Reports: Hx Migraine - uses medication, Other Neuro Impairments/Disorders - Fibromyalgia, PTSD diagnosis 2012 Psychiatric History: Reports: Hx Anxiety - uses medication, Hx Depression - uses medication, Hx Post Traumatic Stress Disorder - Surgical History Surgery Procedure, Year, and Place: adnoidectomy 1992 Hx Anesthesia Reactions: No Infectious Disease History: No Infectious Disease History: Denies: Traveled Outside the [place] in Last 30 Days - Family History Known Family History: Positive: Other - basal cell carcinoma, Parkinsons - Social History Alcohol Use: Rare Hx Substance Use: No Substance Use Type: Reports: None Substance Use Comment - Amount & Last Used: unknown Hx Tobacco Use: No Smoking Status (MU): Never Smoked Tobacco Review of Systems Negative: Fever Positive: Chest Pain All Other Systems Reviewed And Are Negative: Yes Physical Exam - Summary Physical Exam Summary: Appearance: Obese, middle aged female lying in stretcher in obvious discomfort, vital signs notable for tachycardia, Skin: Warm, dry, no obvious rash Eyes: sclera anicteric, no conjunctival pallor ENT: mucous membranes moist, pharynx appears normal Neck: Supple, nontender Respiratory: Clear to auscultation, no signs of respiratory distress Cardiovascular: Pulse is regular but fast, no focal tenderness on chest wall, no abnormal heart sounds Abdomen: Soft, nontender, normal active bowel sounds present Musculoskeletal: Normal, Strength/ROM Intact Neurological: A&Ox3, awake and alert, mentation is normal, speech is fluent and appropriate Psychiatric: affect is normal, does not appear anxious or depressed Triage Information Reviewed: Yes Vital Signs On Initial Exam: Initial Vitals Temp Pulse Resp BP Pulse Ox 98.4 F 104 26 123/99 98 01/29/19 22:31 01/29/19 22:31 01/29/19 22:31 01/29/19 22:31 01/29/19 22:31 Vital Signs Reviewed: Yes Procedures - Sedation Patient Received Moderate/Deep Sedation with Procedure: No Diagnostics - Vital Signs Vital Signs Temp Pulse Resp BP Pulse Ox 01/29/19 22:31 98.4 F 104 26 123/99 98 - Laboratory Result Diagrams: 01/29/19 22:51 01/29/19 22:51 Lab Statement: Any lab studies that have been ordered have been reviewed, and results considered in the medical decision making process. - Radiology CXR Radiology Interpretation Completed By: ED Physician Summary of Radiographic Findings: No acute process. Pending official report. - EKG 2231 Cardiac Rate: Tachycardia - 105 BPM EKG Rhythm: Sinus Tachycardia Summary of EKG Findings: Sinus tachycardia 105 BPM, P waves, QRS complex, and T waves are within normal limits, T waves and intervals are normal, no ischemic changes. This is a normal EKG. Re-Evaluation - Re-Evaluation First Eval Re-Evaluation Time: 02:12 Change: Improved Comment: patient informed of lab and imaging results. understands discharge instructions Chest Pain Course/Dx - Course Course Of Treatment: 43 year old F complains of intermittent episodes of left- sided chest pain radiating into left shoulder blade since December 2018. In the last few days, patient states that she has had increasing number of episodes , usually 4-5 episodes each day, each episode lasting 3-5 minutes. Patient is currently having an episode of chest pain which started 22:30 today 01/29/19 while she was sitting and watching a movie. Physical exam findings: Obese, middle aged female lying in stretcher in obvious discomfort, vital signs notable for tachycardia, pulse is regular but fast, no focal tenderness on chest wall, no abnormal heart sounds. Bloodwork results with no significant abnormalities except for Hgb 11.6, potassium 3.3, creatinine 0.99, AST 81, ALT 189. Troponin I 0.00. Troponin II 0.00. An EKG shows sinus tachycardia 105 BPM, P waves, QRS complex, and T waves are within normal limits, T waves and intervals are normal, no ischemic changes. This is a normal EKG. CXR shows No acute process. In the ED course, the patient was given morphine 4 mg IV x2, normal saline fluids 1 L IV, aspirin 324 mg PO, and 1 NTG. Patient will be discharged home with follow up from Dr. Anderson in 3 days. Patient was instructed to return to Emergency Department for new or worsening symptoms. Patient understands and is agreeable to this plan. - Diagnoses Provider Diagnoses: Chest pain Discharge ED - Sign-Out/Discharge Documenting (check all that apply): Patient Departure - Discharge - Discharge Plan Condition: Improved Disposition: HOME Patient Education Materials: Chest Pain (ED) Referrals: Georges Anderson MD [Primary Care Provider] - 3 Days - Billing Disposition and Condition Condition: IMPROVED Disposition: Home - Attestation Statements Document Initiated by Scribe: Yes Documenting Scribe: Clarita Pruett Provider For Whom Scribe is Documenting (Include Credential): Axel Perla MD Scribe Attestation: I, Clarita Pruett, scribed for Axel Perla MD on 02/02/19 at 1922. Scribe Documentation Reviewed: Yes Provider Attestation: The documentation as recorded by the scribe, Clarita Pruett accurately reflects the service I personally performed and the decisions made by me, Axel Perla MD Status of Scribe Document: Viewed
[2019-01-29 23:00] LABS: ABS Basophils 0.1 10^3/ul (0-0.2); ABS Eosinophils 0.1 10^3/ul (0-0.6); ABS Lymphocytes 3.4 10^3/ul (1.0-4.8); ABS Monocytes 0.7 10^3/ul (0-0.8); ABS Neutrophils 3.7 10^3/ul (1.5-7.7); Eosinophil % 0.7 %; Hematocrit 35 % (35-47); Hemoglobin 11.6 g/dL (12.0-16.0); Lymphocyte % 43.2 %; Mean Corpuscular HGB Conc 33 g/dL (31-36); Mean Corpuscular Hemoglobin 27 pg (27-31); Mean Corpuscular Volume 83 fL (80-97); Mean Platelet Volume 10.1 fL (7.4-10.4); Nucleated Red Blood Cells % 0.1; Platelet Count 241 10^3/uL (150-450); Red Blood Count 4.25 10^6 /uL (3.70-4.87); Red Cell Distribution Width 14 % (10-15); White Blood Count 7.9 10^3/uL (3.5-10.8)
[2019-01-29 23:11] LABS: INR 1.04 (0.82-1.09)
[2019-01-29 23:16] LABS: ALT 189 U/L (7-52); AST 81 U/L (13-39); Albumin 3.8 g/dL (3.2-5.2); Albumin/Globulin Ratio 1.5 (1-3); Alkaline Phosphatase 92 U/L (34-104); Anion Gap 6 mmol/L (2-11); BUN/Creatinine Ratio 10.1 (8-20); Blood Urea Nitrogen 10 mg/dL (6-24); CO2 Carbon Dioxide 28 mmol/L (22-32); Calcium 8.7 mg/dL (8.6-10.3); Chloride 107 mmol/L (101-111); EGFR African American 74.8 (>60); EGFR Non-African American 61.8 (>60); Globulin 2.6 g/dL (2-4); Glucose 84 mg/dL (70-100); Potassium 3.3 mmol/L (3.5-5.0); Sodium 141 mmol/L (135-145); Total Protein 6.4 g/dL (6.4-8.9)
[2019-01-29 23:35] LABS: HCG Pregnancy < 0.60 mIU/mL
[2019-01-30 02:22] VITALS: BP 111/64
== END 2019-01-30 02:29 | disposition home or self-care (01) ==
LOC: ED 22:29
DX: R07.9 Chest pain, unspecified (principal); M25.512 Pain in left shoulder; K21.9 Gastro-esophageal reflux disease without esophagitis; F41.9 Anxiety disorder, unspecified; F32.9 Major depressive disorder, single episode, unspecified; Z79.899 Other long term (current) drug therapy
CPT/HCPCS: 30901; 36415; 71045; 80053; 84484; 84702; 85025; 85379; 85610; 93005; 96374; 99284; A9270-GY; J2270